=== PATIENT | female | born 2000 | race Caucasian/White ===

== ENCOUNTER 2024-06-05 15:01 | Outpatient (RCR) | payer OTHER, SELFPAY ==
[2024-06-06] MEDS: RHO(D) IMMUNE GLOBULIN 300 MCG/2 ML SYRINGE IM (11:09)
== END 2024-09-03 23:59 | disposition home or self-care (01) ==
LOC: ANHLAB 15:01
PROVIDERS: Visit Provider Obstetrics & Gynecology
DX: Z29.13 Encounter for prophylactic Rho(D) immune globulin (principal); O36.0190 Maternal care for anti-D [Rh] antibodies, unspecified trimester, not applicable or unspecified; Z3A.00 Weeks of gestation of pregnancy not specified
CPT/HCPCS: 36415; 85461; 86850; 86900; 86901; 90384; 96372; J2790

== ENCOUNTER 2024-07-03 14:02 | Outpatient (CLI) | payer OTHER, SELFPAY ==
--- NOTE | 2024-07-06 16:59 | P.PCNHOL_ITS ---
Holter/Event Monitor Holter/Event Monitor Date of procedure: 07/03/24 Holter/Event Procedure: 24 Hr Holter Monitor Indications: Palpitations Conclusion: 1. 24 hour holter monitor on 07/03/24. 2. Underlying rhythm is sinus rhythm. HR range 67-162 bpm; average HR 104 bpm. HR at 162 bpm at 14:31. 3. There are 2 premature supraventricular complexes. No supraventricular tachycardia. 4. No premature ventricular complexes. No ventricular tachycardia. 5. No sinoatrial or atrioventricular blocks. No significant pauses greater than 2 seconds. 6. Patient reports symptoms of chest heaviness, heart beating fast which demon strate sinus rhythm, HR range 95-104 bpm.
== END 2024-07-03 14:03 | disposition home or self-care (01) ==
PROVIDERS: Visit Provider Advanced Practice Midwife
DX: R00.2 Palpitations (principal)
CPT/HCPCS: 93225; 93226

== ENCOUNTER 2024-07-10 14:09 | Outpatient (RCR) | payer OTHER, SELFPAY ==
[2024-07-07 11:17] VITALS: BP 108/83; PULSE 118
--- NOTE | ~2024-07-10 | US_ITS ---
EXAMINATION: US OB BPP wo non-stress DATE: 07/10/2024 15:39 INDICATION: elevated BMI . TECHNIQUE: Real-time ultrasound of the pelvis was performed. COMPARISON: None. FINDINGS: There is a single living fetus in vertex presentation, longitudinal lie. The placenta is posterior/f undal. The cervix was shadowed by the head, placenta appears to be well distant from the cervix . heart rate is 155 bpm. Deepest vertical amniotic fluid pocket measures 5.8 cm, which is raheem l. Biophysical profile performed by the technologist: breathing (30 sec sustained breathing in 30 minutes): 2 out of 2. movement (3 gross body movements in 30 minutes: 2 out of 2. tone (one episode of cufrgyc-oakyijmed-wkegsgj limb movement): 2 out of 2. Amniotic fluid pocket (2 cm): 2 out of 2. Total score: 8 out of 8. IMPRESSION: Single living fetus in vertex presentation. Biophysical profile 8 out of 8. Reviewed, dictated and finalized at location K.
== END 2024-08-17 09:45 | disposition home or self-care (01) ==
LOC: ANHOBOP 14:09
PROVIDERS: Referring Provider Advanced Practice Midwife; Visit Provider Obstetrics & Gynecology
DX: O36.8130 Decreased fetal movements, third trimester, not applicable or unspecified (principal); Z3A.35 35 weeks gestation of pregnancy
CPT/HCPCS: 59025; 76819

== ENCOUNTER 2024-07-20 11:21 | Observation (INO) | payer OTHER, SELFPAY ==
--- NOTE | 2024-07-20 11:21 | OBADM ---
This patient, Petra Randle, admitted to the OB room Labor/Delivery/Recovery 105 for observation. Patient/family oriented to hospital policies and general routines including ID bracelet, bed and alarms, visiting hours, pain management, procedures, bathroom and other care routines, personal items, smoking policy, room service/diet, and visiting hours. Patient/Family are encouraged to report perceived risks to care and to ask questions if they do not understand what they are told or what they should do.
[2024-07-20 12:58] LABS: Basophils Absolute Auto 0.1 K/mm3 (0.0-0.1); Basophils Percent Auto 0.6 % (0.2-1.2); Eosinophils Absolute Auto 0.1 K/mm3 (0-0.3); Eosinophils Percent Auto 0.8 % (0-4.4); Hematocrit 35.4 % (37.0-47.0); Hemoglobin 11.4 g/dL (12.0-15.0); Immature Granulocyte Absolute 0.04 K/mm3 (0.00-0.031); Immature Granulocyte Percent A 0.3 % (0-0.5); Lymphocytes Absolute Auto 2.45 K/mm3 (0.9-3.2); Lymphocytes Percent Auto 19.4 % (18.3-44.2); Mean Corpuscular HGB Conc 32.2 g/dl (32-36); Mean Corpuscular Hemoglobin 29.8 pg (26-34); Mean Corpuscular Volume 92.7 fl (80-100); Mean Platelet Volume 10.9 fl (7.4-10.4); Monocytes Percent Auto 7.9 % (2.6-8.5); Platelet Count Result 279 k/mm3 (150-375); Red Blood Count 3.82 M/mm3 (4.2-5.4); Red Cell Distribution Width 14.6 % (11.5-14.5); White Blood Count 12.6 K/mm3 (4.5-10.0)
[2024-07-20 13:03] LABS: Alanine Aminotransferase 16 U/L (6-35); Albumin Level 3.6 g/dL (3.5-5.1); Alkaline Phosphatase 128 U/L (38-126); Anion Gap 7 mmol/L (4-12); Aspartate Amino Transferase 23 U/L (14-36); Bilirubin,Total 0.4 mg/dL (0.2-1.3); Blood Urea Nitrogen 7 mg/dL (7-17); Calcium 9.3 mg/dL (8.4-10.2); Carbon Dioxide 23 mmol/L (22-30); Chloride 106 mmol/L (98-107); Estimated Glomerular Filt Rate > 60; Glucose 83 mg/dL (65-110); Potassium 4.1 mmol/L (3.4-5.0); Sodium 136 mmol/L (137-145); Uric Acid 5.1 mg/dL (2.5-7.5)
[2024-07-20 13:33] LABS: Anisocytosis 1+; Platelet Estimate Adequate (Adequate); Schistocytes None Seen
--- NOTE | 2024-07-21 17:08 | P.PNOB_ITS ---
OB - Triage/Final Diagnosis Visit Information Reason for evaluation: threatened labor Comments/Additional reasons for admission: I have assessed the risk for this patient, Petra Randle, and determined that she would benefit from observation care. Evaluation Laboratory results: Laboratory Tests 07/20/24 12:35 WBC 12.6 H RBC 3.82 L Hgb 11.4 L Hct 35.4 L MCV 92.7 MCH 29.8 MCHC 32.2 RDW 14.6 H Plt Count 279 MPV 10.9 H Immature Gran % (Auto) 0.3 Neut % (Auto) 71.0 Lymph % (Auto) 19.4 [place] % (Auto) 7.9 Eos % (Auto) 0.8 Baso % (Auto) 0.6 Lymph # (Auto) 2.45 [place] # (Auto) 1.0 H Eos # (Auto) 0.1 Baso # (Auto) 0.1 Abs Immat Gran (auto) 0.04 H Absolute Neuts (auto) 9.0 H Absolute Nucleated RBC 0.000 Nucleated RBC % 0.0 Platelet Estimate Adequate Anisocytosis 1+ Schistocytes None seen Sodium 136 L Potassium 4.1 Chloride 106 Carbon Dioxide 23 Anion Gap 7 BUN 7 Creatinine 0.60 L Estim Creat Clear Calc Not Reportable Estimated GFR > 60 Glucose 83 Uric Acid 5.1 Calcium 9.3 Total Bilirubin 0.4 AST 23 ALT 16 Alkaline Phosphatase 128 H Total Protein 7.0 Albumin 3.6
== END 2024-07-20 13:47 ==
PROVIDERS: Advanced Practice Midwife; Admitting Provider Obstetrics & Gynecology; Visit Provider Obstetrics & Gynecology
DX: O47.1 False labor at or after 37 completed weeks of gestation (principal); Z3A.37 37 weeks gestation of pregnancy
CPT/HCPCS: 36415; 80053; 84550; 85025; G0378; G0379

== ENCOUNTER 2024-07-21 16:47 | Inpatient (IN) | payer OTHER, SELFPAY ==
[2024-07-21] VITALS (14 sets, daily range): BP systolic 113–146; BP diastolic 72–96; PULSE 97–143; TEMP 37.1; BMI 48.8
--- NOTE | 2024-07-21 17:48 | LDADM ---
This patient, Petra Randle, was admitted to Labor/Delivery/Recovery 107 on 07/21/24 at 16:47. Plans for labor, pain management and were discussed with patient. Patient/family oriented to hospital policies and general routines including ID bracelet, bed and alarms, visiting hours, pain management, procedures, bathroom and other care routines, personal items, smoking policy, room service/diet and guest tray routines, infant security routines, and visiting hours. Patient/Family are encouraged to report perceived risks to care and to ask questions if they do not understand what they are told or what they should do. See OBIX for further documentation.
[2024-07-21 17:55] LABS: Basophils Absolute Auto 0.1 K/mm3 (0.0-0.1); Basophils Percent Auto 0.4 % (0.2-1.2); Eosinophils Absolute Auto 0.1 K/mm3 (0-0.3); Eosinophils Percent Auto 0.7 % (0-4.4); Immature Granulocyte Absolute 0.06 K/mm3 (0.00-0.031); Immature Granulocyte Percent A 0.5 % (0-0.5); Lymphocytes Absolute Auto 2.31 K/mm3 (0.9-3.2); Lymphocytes Percent Auto 19.7 % (18.3-44.2); Mean Corpuscular HGB Conc 33.3 g/dl (32-36); Mean Corpuscular Hemoglobin 30.5 pg (26-34); Mean Corpuscular Volume 91.6 fl (80-100); Mean Platelet Volume 10.7 fl (7.4-10.4); Monocytes Absolute Auto 0.9 K/mm3 (0.1-0.6); Monocytes Percent Auto 7.8 % (2.6-8.5); Neutrophils Absolute Auto 8.3 K/mm3 (1.3-6.7); Neutrophils Percent Auto 70.9 % (45.5-73.1); Platelet Count Result 276 k/mm3 (150-375); Red Blood Count 3.93 M/mm3 (4.2-5.4); Red Cell Distribution Width 14.6 % (11.5-14.5); White Blood Count 11.8 K/mm3 (4.5-10.0)
[2024-07-21 18:04] LABS: Alanine Aminotransferase 18 U/L (6-35); Albumin Level 3.5 g/dL (3.5-5.1); Alkaline Phosphatase 137 U/L (38-126); Anion Gap 11 mmol/L (4-12); Aspartate Amino Transferase 23 U/L (14-36); Bilirubin,Total 0.4 mg/dL (0.2-1.3); Blood Urea Nitrogen 7 mg/dL (7-17); Calcium 9.3 mg/dL (8.4-10.2); Carbon Dioxide 20 mmol/L (22-30); Chloride 105 mmol/L (98-107); Estimated CRCL calculation 162 ml/min; Estimated Glomerular Filt Rate > 60; Glucose 79 mg/dL (65-110); Potassium 3.9 mmol/L (3.4-5.0); Sodium 136 mmol/L (137-145); Uric Acid 5.5 mg/dL (2.5-7.5)
[2024-07-21] MEDS: miSOPROStol 25 MCG TABLET 50 MCG BUCCAL ×2 (18:04→22:06)
--- NOTE | 2024-07-21 18:08 | WPDANESEPP ---
Anes - Eval Pre Procedure Procedure: Labor Epidural Date/Time: 07/21/24 18:08 Surgeon: Ata Preop Diagnosis: Labor pain Pre Op Diagnosis: Induction of Labor Patient Data Age: 24 Gender: F Height: 1.63 m Weight: 129 kg Last Vital Signs Pulse 112 H 07/21/24 17:52 BP 126/88 07/21/24 17:52 O2 Del Method Room Air 07/21/24 17:39 Allergies Allergy/AdvReac Type Severity Reaction Status Date / Time latex Allergy Hives Verified 07/10/24 14:28 minocycline Allergy Palpitation Verified 07/10/24 14:28 s nicotine Allergy Dyspnea / Verified 07/10/24 14:28 SOB prednisolone Allergy Other Verified 07/10/24 14:28 prednisone Allergy Other Verified 07/10/24 14:28 Sulfa (Sulfonamide Allergy Fever Verified 07/10/24 14:28 Antibiotics) Home Medications Medication Instructions Recorded Confirmed Type vits no.126-ferrous fum 1 tablet PO DAILY 07/10/24 07/10/24 History 28 mg iron-folic acid 800 mcg tablet (Classic ) Laboratory Tests 07/21/24 07/21/24 07/21/24 17:44 17:44 17:44 WBC 11.8 H K/mm3 (4.5-10.0) RBC 3.93 L M/mm3 (4.2-5.4) Hgb 12.0 g/dL (12.0-15.0) Hct 36.0 L % (37.0-47.0) MCV 91.6 fl (80-100) MCH 30.5 pg (26-34) MCHC 33.3 g/dl (32-36) RDW 14.6 H % (11.5-14.5) Plt Count 276 k/mm3 (150-375) MPV 10.7 H fl (7.4-10.4) Immature Gran % (Auto) 0.5 % (0-0.5) Neut % (Auto) 70.9 % (45.5-73.1) Lymph % (Auto) 19.7 % (18.3-44.2) [place] % (Auto) 7.8 % (2.6-8.5) Eos % (Auto) 0.7 % (0-4.4) Baso % (Auto) 0.4 % (0.2-1.2) Lymph # (Auto) 2.31 K/mm3 (0.9-3.2) [place] # (Auto) 0.9 H K/mm3 (0.1-0.6) Eos # (Auto) 0.1 K/mm3 (0-0.3) Baso # (Auto) 0.1 K/mm3 (0.0-0.1) Abs Immat Gran (auto) 0.06 H K/mm3 (0.00-0.031) Absolute Neuts (auto) 8.3 H K/mm3 (1.3-6.7) Absolute Nucleated RBC 0.000 K/mm3 (0.0-0.012) Nucleated RBC % 0.0 % (0.0-0.2) Sodium 136 L mmol/L Pending (137-145) Potassium 3.9 mmol/L Pending (3.4-5.0) Chloride 105 mmol/L (98-107) Carbon Dioxide Anion Gap BUN Creatinine Estim Creat Clear Calc Estimated GFR Glucose Uric Acid Calcium Total Bilirubin AST ALT Alkaline Phosphatase Total Protein Albumin RPR HIV 1&2 Ab/P24 Ag 4thGn 07/21/24 07/21/24 07/21/24 17:44 17:44 17:44 WBC RBC Hgb Hct MCV MCH MCHC RDW Plt Count MPV Immature Gran % (Auto) Neut % (Auto) Lymph % (Auto) [place] % (Auto) Eos % (Auto) Baso % (Auto) Lymph # (Auto) [place] # (Auto) Eos # (Auto) Baso # (Auto) Abs Immat Gran (auto) Absolute Neuts (auto) Absolute Nucleated RBC Nucleated RBC % Sodium Potassium Chloride Pending Carbon Dioxide 20 L mmol/L Pending (22-30) Anion Gap 11 mmol/L Pending (4-12) BUN 7 mg/dL (7-17) Creatinine Estim Creat Clear Calc Estimated GFR Glucose Uric Acid Calcium Total Bilirubin AST ALT Alkaline Phosphatase Total Protein Albumin RPR HIV 1&2 Ab/P24 Ag 4thGn 07/21/24 07/21/24 07/21/24 17:44 17:44 17:44 WBC RBC
[2024-07-21 18:44] LABS: HIV 1/2 Ab P24 Ag Result Negative (Negative)
[2024-07-21 19:14] LABS: Rapid Plasma Reagin Non-Reactive (NonReactive)
[2024-07-22] VITALS (184 sets, daily range): BP systolic 102–155; BP diastolic 54–111; PULSE 81–289; TEMP 36.6–37; O2SAT 58–100
[2024-07-22] MEDS: miSOPROStol 25 MCG TABLET 50 MCG BUCCAL ×2 (02:09→06:05)
--- NOTE | 2024-07-22 08:08 | WPDOBADMIT ---
Obstetrics - Admit Note Admission Note: record reviewed. No pertinent additions to the history and/or any subsequent changes in the physical findings that are not consistent with the expected course of the were found. Additions to the history and/or subsequent changes in the physical findings follow. 37.4 weeks gestation, admitted for gestational HTN, SVE /-2
[2024-07-22] MEDS: LACTATED RINGERS 1,000 ML 125 ML IV CONT ×3 (10:38→19:37)
[2024-07-22] MEDS: OXYTOCIN 30 UNITS/NS 500 ML 30 UNITS/500 ML BAG 6 UNITS IV CONT (10:39)
--- NOTE | 2024-07-22 12:40 | PM.OBPNVD ---
OB - PN: Subj Subjective Date/time seen: 07/22/24 12:40 Interval history: FHR category 1 contractions irregular SVE 2/60/-2 AROM clear fluid, anticipate vaginal delivery OB - PN: Obj Data Labs 07/21/24 17:44 07/21/24 17:44 Labs: Laboratory Results - last 24 hr 07/21/24 07/21/24 07/21/24 17:44 17:44 17:44 WBC 11.8 H RBC 3.93 L Hgb 12.0 Hct 36.0 L MCV 91.6 MCH 30.5 MCHC 33.3 RDW 14.6 H Plt Count 276 MPV 10.7 H Immature Gran % (Auto) 0.5 Neut % (Auto) 70.9 Lymph % (Auto) 19.7 [place] % (Auto) 7.8 Eos % (Auto) 0.7 Baso % (Auto) 0.4 Lymph # (Auto) 2.31 [place] # (Auto) 0.9 H Eos # (Auto) 0.1 Baso # (Auto) 0.1 Abs Immat Gran (auto) 0.06 H Absolute Neuts (auto) 8.3 H Absolute Nucleated RBC 0.000 Nucleated RBC % 0.0 Sodium 136 L Cancelled Potassium 3.9 Cancelled Chloride 105 Carbon Dioxide Anion Gap BUN Creatinine Estim Creat Clear Calc Estimated GFR Glucose Uric Acid Calcium Total Bilirubin AST ALT Alkaline Phosphatase Total Protein Albumin RPR HIV 1&2 Ab/P24 Ag 4thGn Blood Type Antibody Screen Antibody Identification Antigen Identification BRITTANY, IgG Interpret BRITTANY, Poly Interpret BRITTANY, Complement Interp 07/21/24 07/21/24 07/21/24 17:44 17:44 17:44 WBC RBC Hgb Hct MCV MCH MCHC RDW Plt Count MPV Immature Gran % (Auto) Neut % (Auto) Lymph % (Auto) [place] % (Auto) Eos % (Auto) Baso % (Auto) Lymph # (Auto) [place] # (Auto) Eos # (Auto) Baso # (Auto) Abs Immat Gran (auto) Absolute Neuts (auto) Absolute Nucleated RBC Nucleated RBC % Sodium Potassium Chloride Cancelled Carbon Dioxide 20 L Cancelled Anion Gap 11 Cancelled BUN 7 Creatinine Estim Creat Clear Calc Estimated GFR Glucose Uric Acid Calcium Total Bilirubin AST ALT Alkaline Phosphatase Total Protein Albumin RPR HIV 1&2 Ab/P24 Ag 4thGn Blood Type Antibody Screen Antibody Identification Antigen Identification BRITTANY, IgG Interpret BRITTANY, Poly Interpret BRITTANY, Complement Interp 07/21/24 07/21/24 07/21/24 17:44 17:44 17:44 WBC RBC Hgb Hct MCV MCH MCHC RDW Plt Count MPV Immature Gran % (Auto) Neut % (Auto) Lymph % (Auto) [place] % (Auto) Eos % (Auto) Baso % (Auto) Lymph # (Auto) [place] # (Auto) Eos # (Auto) Baso # (Auto) Abs Immat Gran (auto) Absolute Neuts (auto) Absolute Nucleated RBC Nucleated RBC % Sodium Potassium Chloride Carbon Dioxide Anion Gap BUN Cancelled Creatinine 0.60 L Cancelled Estim Creat Clear Calc 162 Cancelled Estimated GFR > 60 Glucose Uric Acid Calcium Total Bilirubin AST ALT Alkaline Phosphatase Total Protein Albumin RPR HIV 1&2 Ab/P24 Ag 4thGn Blood Type Antibody Screen Antibody Identification Antigen Identification BRITTANY, IgG Interpret BRITTANY, Poly Interpret BRITTANY, Complement Interp 07/21/24 07/21/24 07/21/24 17:44 17:44 17:44 WBC RBC Hgb Hct MCV MCH MCHC RDW Plt Count MPV Immature Gran % (Auto) Neut % (Auto) Lymph % (Auto) [place] % (Auto) Eos % (Auto) Baso % (Auto) Lymph # (Auto) [place] # (Auto) Eos # (Auto) Baso # (Auto) Abs Immat Gran (auto) Absolute Neuts (auto) Absolute Nucleated RBC Nucleated RBC % Sodium Potassium Chloride Carbon Dioxide Anion Gap BUN Creatinine Estim Creat Clear Calc Estimated GFR Cancelled Glucose 79 Cancelled Uric Acid 5.5 Calcium 9.3 Cancelled Total Bilirubin 0.4 AST ALT Alkaline Phosphatase Total Protein Albumin RPR HIV 1&
[2024-07-22] MEDS: SODIUM CHLORIDE 0.9% IV 300 ML 600 ML I-UTERINE (19:37)
[2024-07-22] MEDS: SODIUM CHLORIDE 0.9% IV 1,000 ML 150 ML I-UTERINE (20:08)
[2024-07-22] MEDS: OXYTOCIN 30 UNITS/NS 500 ML 30 UNITS/500 ML BAG 999 UNITS IV CONT (23:30)
--- NOTE | 2024-07-22 23:35 | P.PCNOB_ITS ---
OB - Vaginal Delivery Note Procedure Delivery date: 07/22/24 Events: Gestational Hypertension Induction method: AROM, Per Misoprostol Protocol and Per Pitocin Protocol Delivery monitor: Internal FHT and Internal Uterine Route of delivery: Episiotomy description: None Laceration Description: Perineal - 1st Degree Delivery repair: vicryl Specimen: No Quantitative Blood Loss (ml): 300 Anesthesia type: Epidural Disposition: Floor Complications: No immediate complications [place] Baby Date of : 07/22/24 Time of : 23:21 Gestational Age by Date: 37 Infant gender: Male presentation: vertex position: Right Occiput Anterior Placenta delivery description: Spontaneous Cord Vessel Description: 3 Vessels and Clamped/Cut score one minute: 7 score five minutes: 9
[2024-07-23] VITALS (26 sets, daily range): BP systolic 102–149; BP diastolic 63–106; PULSE 94–142; RESP 16–18; TEMP 36.4–37.2; O2SAT 93–100
[2024-07-23] MEDS: LACTATED RINGERS 1,000 ML 125 ML IV CONT (00:07)
[2024-07-23] MEDS: OXYTOCIN 30 UNITS/NS 500 ML 30 UNITS/500 ML BAG 125 UNITS IV CONT (00:08)
[2024-07-23] MEDS: BENZOCAINE 20% AER SPR (*SP) 56 GM CAN 1 SPRAY TOPICAL (00:41)
[2024-07-23] MEDS: WITCH HAZEL 40 PADS 1 PAD TOPICAL (00:41)
[2024-07-23] MEDS: IBUPROFEN 600 MG TABLET PO (00:41)
[2024-07-23 05:27] LABS: Hemoglobin 9.3 g/dL (12.0-15.0)
--- NOTE | 2024-07-23 06:43 | OBPPTRN ---
Patient transferred to post room #284 via wheelchair. Support person present. Oriented to unit, room, information board, rooming in, admission packet and security measures. Patient verbalizes understanding.
--- NOTE | 2024-07-23 07:40 | PC.NURSE ---
0740 Introductions were made, then consulted with patient to assess needs related to . Discussed with mother her?plans to feed?her infant and the?experience so far, mother has history of PCOS and hyperplasia. She was given a nipple shield by the night RN to use as baby was not giving much effort to latch. Baby had fed at 0600, RN went over feeding cues and what to watch for, put baby skin to skin in the next hour or so and call out for assistance with latch. Resources provided for inpatient and outpatient services with the feeding sheet, mom/baby guide and name written on the communication board. Mother voiced understanding of information and will call if there is a request for assistance. Reported to the Primary RN.
--- NOTE | 2024-07-23 07:54 | PM.OBPNVD ---
OB - PN: Subj Subjective Date/time seen: 07/23/24 07:54 Interval history: FHR category 1 contractions irregular SVE 2/60/-2 AROM clear fluid, anticipate vaginal delivery Patient comments: no complaints, pain well controlled, incisional pain, tolerating diet and flatus present OB - PN: Obj Data Labs 07/23/24 04:11 07/21/24 17:44 Labs: Laboratory Results - last 24 hr 07/23/24 04:11 Hgb 9.3 L Hct 28.0 L Blood Type O Negative Antibody Screen TNP Screen Negative Baby's Blood Type O pos Baby's BRITTANY Negative Doses of RhIg Required 1 OB - PN A/P Plan day: 1 Plan: routine care Comments: No problems, routine care Time Spent With Patient Time: Total time spent is greater than 50% in coordination of care (as documented) at patient's floor/unit and/or counseling patient: Exam Const: General: comfortable, no acute distress and alert Resp: Effort & Inspection: normal respiratory effort Auscultation: no crackles, no rales and no rhonchi Cardio: Rate: regular rate Heart sounds: no click, no murmurs and no rubs GI: Inspection: non-distended GI Palp: No Tenderness to palpation present (GI) Auscultation: normal bowel sounds Other: Incision - CDI Extrem: General: normal to inspection, no pedal edema and no calf tenderness
[2024-07-23] MEDS: POLYSACCHARIDE IRON COMPLEX 150 MG CAPSULE PO ×2 (08:41→17:31)
[2024-07-23] MEDS: DOCUSATE SODIUM 100 MG CAPSULE PO ×2 (08:41→17:31)
[2024-07-23] MEDS: MULTIVIT/MIN/PREN/FOL AC/IRON TABLET 1 TAB PO (08:41)
--- NOTE | 2024-07-23 10:25 | PC.NURSE ---
Breast pump provided due to nipple shield use. Instructions given on cleaning, care, usage, that there should be no pain, pumping schedule for milk production, collection, and storage of human milk. Patient was assessed for correct placement, flange size, to pump for comfort and nipple stretching/stimulation for adequate milk production every 3 hours (8 times in 24 hours) 1-2 times at night.?Mother voiced understanding of the education shared along with mom/baby guide and the pump measurement, flange fit handout for additional resource information.
--- NOTE | 2024-07-23 11:14 | WPDANLDPN2 ---
Anes-Prog Note L&D Date/Time: 07/23/24 11:14 Comfortable throughout: labor and delivery Neuraxial method: epidural Epidural/Spinal procedure site: clean & non-tender Neuro status: Neuro function grossly intact. Cardiovascular status: normal Respiratory status: normal Airway patency: baseline Mental status: baseline Post-Op hydration status: normal Vital Signs: Last Vital Signs Temp 37.2 C 07/23/24 07:00 Pulse 94 07/23/24 07:00 Resp 16 07/23/24 07:00 BP 122/85 07/23/24 07:00 Pulse Ox 96 07/23/24 07:00 O2 Del Method Room Air 07/23/24 07:00 Pain score (VAS): 1 I/O: Intake & Output 07/22/24 07/23/24 07/23/24 23:59 07:59 15:59 Intake Total 722.9 562.5 350 Output Total 100 180 Balance 722.9 462.5 170 Post-procedural complaints: none Patient feedback: Patient satisfied with anesthetic care.
[2024-07-23] MEDS: RHO(D) IMMUNE GLOBULIN 300 MCG/2 ML SYRINGE IM (13:22)
--- NOTE | 2024-07-23 16:47 | PC.NURSE ---
1630. Patient called for help getting infant to latch to breast. Mom reports she gave the a bottle for the last feed because she was worried that he wasn't getting enough milk . Education offered to mom on milk production and the different stages of milk. Mom to breastfeed as often as possible to protect and establish her milk supply but also to avoid drink confusion in infant. Educated mom on infants requirements of nursing at a minimum of every 3 hours for 15 minutes at the breast to be considered a feeding after he is 24 hours old. Mother verbalized understanding. Assisted mom with latching the . He was showing early feeding cues. Infant was able to obtain an optimal latch in football position, audible swallows heard. Mom reports no pain with the latch. maintained latch and continued to feed. Mom encouraged to call again if she needs assistance with a latch or has questions. She verbalized understanding. Reported to the primary RN.
--- NOTE | 2024-07-23 17:57 | PC.NURSE ---
1745. Patient called for support. Mom reported that infant was having difficulties latching, and then would just fall asleep. last fed at 1430. was alseep on moms chest doing s2s. No feeding cues at present. Reviewed early feeding cues with mom and dad. Mom encouraged to move infant around and stimulate him a bit to see if he would show feeding cues. Mom hand expressed multiple drops of colostrum on her nipple and offered to . No successful latch obtained at this time. Multiple attempts made to latch : sleepy and reluctatnt to latch. Mom encouraged to do s2s with infant and retry to latch and feed infant in 15-20 min. Education reinforced with mom on PCOS and implications for potential low milk supply. Reported to primary RN.
[2024-07-24 00:30] VITALS: BP 117/82
[2024-07-24 04:35] VITALS: BP 116/84
--- NOTE | 2024-07-24 08:09 | PM.OBPNVD ---
OB - PN: Subj Subjective Date/time seen: 07/24/24 08:09 Interval history: pp day 2 doing well plan d/c home OB - PN: Obj Data Labs 07/23/24 04:11 07/21/24 17:44 Labs: Laboratory Results - last 24 hr 07/23/24 04:11 Blood Type O Negative Antibody Screen TNP Screen Negative Baby's Blood Type O pos Baby's BRITTANY Negative Doses of RhIg Required 1 OB - PN A/P Plan day: 2 Plan: routine care and discharge home Time Spent With Patient Time: Total time spent is greater than 50% in coordination of care (as documented) at patient's floor/unit and/or counseling patient: Review of Systems Review of Systems: All systems reviewed & are unremarkable except as noted in HPI and below Exam Const: General: cooperative and healthy appearing Chest: Chest palpation & inspection: normal inspection of the chest Resp: Effort & Inspection: normal respiratory effort Skin: General skin exam: normal color Extrem: General: normal to inspection
--- NOTE | 2024-07-24 08:09 | PM.OBDSVD ---
DS: Admitting Diagnosis Discharge Date 07/24/24 Admitting Diagnosis IOL, GHTN OB - DS: Summary OB Procedures : None OB Procedures Intrapartum: Spontaneous Vag Delivery OB Procedures: : None Peripartum Data Laceration Description: Perineal - 1st Degree Episiotomy description: None Time Spent with Patient Time attestation: Total time spent providing and/or coordinating discharge services: DS: Data Data Completed and Pending Labs on day of discharge: Labs from last 24 hours 07/23/24 04:11 Blood Type O Negative Antibody Screen TNP Screen Negative Baby's Blood Type O pos Baby's BRITTANY Negative Doses of RhIg Required 1 Discharge Plan Discharge Attending physician on discharge: Colby Berumen Discharging Clinician: Roshni Carrion Patient Disposition: Home, Self-Care Activity: pelvic rest Diet: regular Patient Instructions: Antibiotic Form Stand Alone Forms: General Discharge Information Follow-up/Referrals: Roshni Carrion, CNM [Certified Nurse Software Educator] - 4 Weeks Discharge Medications: No Action Classic 28 mg iron- 800 mcg Tablet 1 tablet PO DAILY Date of admission: 07/21/24 16:47 Primary Care Provider: UNKNOWN,DOCTOR Admitting Provider: Colby Berumen Attending physician on admission: Colby Berumen Condition: Stable
[2024-07-24 08:30] VITALS: BP 127/80; PULSE 103; RESP 18; TEMP 36.5; O2SAT 99
[2024-07-24] MEDS: POLYSACCHARIDE IRON COMPLEX 150 MG CAPSULE PO (10:15)
[2024-07-24] MEDS: DOCUSATE SODIUM 100 MG CAPSULE PO (10:15)
[2024-07-24] MEDS: MULTIVIT/MIN/PREN/FOL AC/IRON TABLET 1 TAB PO (10:15)
--- NOTE | 2024-07-24 10:45 | PC.NURSE ---
1000 - Introductions were made, then consulted with patient to assess needs related to . Discussed with mother her?plans to feed?her and the?experience so far. She is attempting at breast and then pumping and bottle feeding. She declined assistance this morning when requesting a bottle of formula. Father says baby doesn't 'like' the breast. Resources offered and requested if they latch baby that they call out for a latch check. Name/number on white board and mother baby guide for reference. Mother voiced understanding of information and will call if there is a request for assistance. Reported to the Primary RN. 1045- Father called out to say they were getting ready to breastfeed baby. We reviewed working with the , supporting breast, protecting her nipples with an optimal deep latch. Mom had baby latched and she said he had been sucking well for several minutes. We discussed that he appears to have a shallow latch and she states that they worked to have him open wide and take more breast in his mouth, but that he 'hates it'. We reviewed good nipple care, lanolin given. Mom's electric pump is on its way in the mail and she has a hand pump to use until it arrives. She seems confident to continue with attempting, pumping and bottle feeding. Encouraged consistent pumping if doesn't effectively breastfeed. We also discussed adequate volumes when bottle feeding, increasing if infant desires, and how formula digests slower and may make more sleepy at subsequent breastfeedings if he isn't hungry at 3 hours. Encouraged understanding the benefits of skin to skin, responding to feeding cues, frequencies of feeding 8-12 times in 24 hours (approximately 2-3 hours), duration of feedings, milk production, intake/output feeding sheet and signs of adequate intake encouraging swallowing at the breast. Reviewed leading with the chin with big, open, wide gape. latched to the [right] breast in [football] position. Education given to the mother of how to visualize the suckling (with good rocking jaw motion) swallows (dropping of the lower jaw) and how to listen for drinking at the breast (the ka sound). The was [able] to maintain the shallow latch that mom says is typical for him. We reviewed milk transfer and how the milk ducts can be compressed if baby doesn't latch deeply. Resources used to facilitate learning were used from the [mom and baby guide]. Mother voiced understanding of the education shared, to call for assistance if the does not latch or if there is discomfort with . Reported to the Primary RN.
[2024-07-25 11:34] VITALS: BP 134/89; PULSE 80; RESP 18; TEMP 36.7; O2SAT 98
--- NOTE | 2024-07-27 11:24 | PM.OBDSVD ---
DS: Admitting Diagnosis Discharge Date 07/24/24 Admitting Diagnosis iol DS: Discharge Diagnosis Discharge Diagnosis (1) Vaginal delivery: Code(s): O80 - Encounter for full-term uncomplicated delivery Status: Acute OB - DS: Summary OB Procedures : None OB Procedures Intrapartum: Spontaneous Vag Delivery OB Procedures: : None Peripartum Data Laceration Description: Perineal - 1st Degree Episiotomy description: None Time Spent with Patient Time attestation: Total time spent providing and/or coordinating discharge services: Discharge Plan Discharge Attending physician on discharge: Colby Berumen Consulting providers: Roshni Carrion; Guerita Booker; Dick Duffy Discharging Clinician: Roshni Carrion Patient Disposition: Home, Self-Care Activity: pelvic rest Diet: regular Discharge Instructions: Education: Mom and Baby Guide Given to: Mother Follow-Up: Call your delivering provider's office for an appointment to be seen in: 4 Weeks Mom and baby should come to the [facility] for the follow-up appointment. Appointment Date/Time: July 25, 2024 at 11:00 am What to expect at your follow-up visit: Physical Assessment Call [phone] if you are unable to keep your appointment time. BREAST CARE: * Wear a snug supportive bra. * For engorgement discomfort: Breast Feeding: * Apply warm moist washcloths * Express milk as needed to relieve engorgement * Wear loose clothing * For sore nipples: * Identify correct latch-on * Apply warm moist washcloths before and after nursing * Air dry nipples after nursing * May apply Lansinoh cream to nipples PERINEAL CARE: * Until bleeding stops, use your louis bottle after urinating * Change your pad frequently throughout the day * You may take sitz baths several times a day (fill your bathtub with warm water and soak for 20 minutes.) Do NOT bathe in the water * No tub baths until seen by your physician - You may shower ACTIVITY: * Rest as much as possible. * Do not exercise or lift anything heavier than your baby (such as laundry or other children.) * Avoid stairs or driving as much as possible. * Do not put anything into the vagina. No douching, tampons, or sexual activity until seen by physician. NOTIFY PHYSICIAN IF YOU HAVE ANY QUESTIONS OR IF ANY OF THE FOLLOWING SYMPTOMS OCCUR: * If your perineum becomes red, swollen, or more painful than what you have experienced in the hospital. * If your vaginal bleeding becomes foul smelling. * If your vaginal bleeding becomes more heavy than a period or if your bleeding changes from pink to bright red. However, you may pass an occasional walnut-sized clot once or twice for the first week . * If you experience a sharp, shooting pain in you calves. * If you discover a hard, reddened area on your breast or if you experience flu-like symptoms. DIET: * Eat regular, well-balanced meals. * Drink plenty of fluids daily. Patient Instructions: Antibiotic Form Stand Alone Forms: General Discharge Information Follow-up/Referrals: Roshni Carrion CNM [[employer]] - 4 Weeks Discharge Medications: Continued Classic 28 mg iron- 800 mcg Tablet 1 tablet PO DAILY Date of admission: 07/21/24 16:47 Primary Care Provider: UNKNOWN,DOCTOR Admitting Provider: Colby Berumen Attending physician on admission: Colby Berumen Condition: Stable
== END 2024-07-24 15:57 | disposition home or self-care (01) | DRG 807 ==
LOC: ANHLDR 16:50 → ANHOBPP 07-23 03:41 → ANHOB2 07-23 06:57
PROVIDERS: Admitting Provider Obstetrics & Gynecology; Referring Provider Advanced Practice Midwife; Visit Provider Obstetrics & Gynecology
DX: O13.4 Gestational [pregnancy-induced] hypertension without significant proteinuria, complicating childbirth (principal); Z37.0 Single live birth; Z3A.37 37 weeks gestation of pregnancy; O70.0 First degree perineal laceration during delivery; O69.81X0 Labor and delivery complicated by cord around neck, without compression, not applicable or unspecified
CPT/HCPCS: 36415; 80053; 84550; 85014; 85018; 85025; 85461; 86592; 86703; 86850; 86880; 86900; 86901; 86902; 90384; A9270; G0378; G0379; G0432; J2590; J2790; J2795; J7030; J7120